=== PATIENT | female | born 1995 | race Caucasian/White ===

== ENCOUNTER 2019-12-10 11:10 | Day surgery (SDC) | payer BC ==
[~2019-12-10] VITALS: Ht 172.7 cm; Wt 170.5 kg
[~2019-12-10 11:10] MED LIST: BCP; PANT40 PO
--- NOTE | 2019-12-10 12:27 | NUR ---
12/10/19 1227 Shantell King BETADINE TEST PER DR. BRUSH. LEFT FOREARM
--- NOTE | 2019-12-10 13:26 | NUR ---
12/10/19 1934 Payal Ponce PT HAS IODINE ALLERGY, RASH. SKIN TEST IN PRE OP. NO REDDNESS OR RASH. OK TO USE DURAPREP PER
--- NOTE | 2019-12-10 16:08 | NUR ---
12/10/19 1607 Mi Addison RN RECIEVED REPORT FROM [facility].RDB AT 1555. PT IN CHAIR WITH SISTER AT CHAIRSIDE. PT USING INCENTIVE SPIROMETER FOR SATS LESS THAN 92%. PT TOLERATING PO FLUIDS. AT APPROXIMATELY 1600 PT COMPLAINED OF NAUSEA. EMESIS BAG GIVEN TO PT WELL IV REGLAN PER DR'S ORDERS. PT DID NOT VOMIT. PT STATES NAUSEA HAS NOW RESOLVED. VSS. CALL LIGHT IN REACH.
== END 2019-12-10 16:37 | disposition home or self-care (01) ==
LOC: ORSCSDS 11:10
PROVIDERS: Surgery
PROC: BF031ZZ Plain Radiography of Gallbladder and Bile Ducts using Low Osmolar Contrast (ICD-10-PCS; principal; 2019-12-10 13:00)
PROC: 0FT44ZZ Resection of Gallbladder, Percutaneous Endoscopic Approach (ICD-10-PCS; principal; 2019-12-10 13:00)
DX: K80.20 Calculus of gallbladder without cholecystitis without obstruction (principal); K21.9 Gastro-esophageal reflux disease without esophagitis; E66.01 Morbid (severe) obesity due to excess calories; Z68.43 Body mass index [BMI] 50.0-59.9, adult
CPT/HCPCS: 74300; 88304; C1729; J0690; J1100; J1885; J2250; J2405; J2704; J2765; J3010; J7120